=== PATIENT | female | born 1945 | race Caucasian/White ===

== ENCOUNTER 2018-07-16 21:22 | Emergency (ER) | payer MEDICARE, MEDICAID ==
[2018-07-16] MEDS ORDERED: Apixaban 2.5 MG Tab PO ONE (21:58)
[2018-07-16] MEDS ORDERED: Metoprolol Tartrate 50 MG Tab PO ONE ×2 (21:59→22:14)
[2018-07-16] MEDS ORDERED: Diltiazem 25 MG/5 ML SDV IVPUSH ONE (21:59)
--- NOTE | 2018-07-16 22:00 | EDM.PDOC ---
ED HPI GENERAL MEDICAL PROBLEM - General Chief Complaint: Cardiovascular Problem Stated Complaint: MEDICAL VIA NORTH Time Seen by Provider: 07/16/18 22:00 Source of Information: Reports: Patient History Limitations: Reports: No Limitations - History of Present Illness INITIAL COMMENTS - FREE TEXT/NARRATIVE: PT WAS DOING SOME EXTRA ACTIVITY MOVING FURNITURE TONITE AND SHE WENT BACK INTO ATRIAL FIB. SHE HAD AN EPISODE OF ATRIAL FIB JUST BEFORE THE May. sHE WAS ELECTRICALLY CARDIOVERTED. sHE HAS BEEN STABLE SINCE THAT TIME. sHE HAS BEEN ON METOROPROL BUT WAS OUT OF HER MEDS TODAY SO SHE DID NOT TAKE THE 100MG THAT SHE USUIALLY TAKES. sHE DID NOT HAVE CHEST PAIN. sHE WAS NOT REAL SOB. Onset: Today, Sudden, Other (STARTED THIS PM. ) Duration: Hour(s): Location: Reports: Chest Associated Symptoms: Reports: Shortness of Breath, Weakness - Related Data Allergies Allergy/AdvReac Type Severity Reaction Status Date / Time codeine Allergy Sweating Verified 07/16/18 21:26 Penicillins Allergy Swelling Verified 07/16/18 21:26 Home Meds: Home Meds Losartan [Cozaar] 100 mg PO DAILY 12/28/13 [History] Metoprolol Tartrate [Lopressor] 100 mg PO DAILY 12/28/13 [History] atorvaSTATin [Lipitor] 20 mg PO BEDTIME 12/28/13 [History] metFORMIN [Glucophage] 500 mg PO BID 12/28/13 [History] Latanoprost 2.5 ml EYEBOTH BEDTIME 07/09/14 [History] Aspirin 81 mg PO DAILY 09/03/16 [History] Propylene Glycol [Systane Balance] 1 drop EYEBOTH ASDIRECTED 09/03/16 [History] Albuterol [Ventolin HFA] 2 puff INH QID PRN 05/24/18 [History] Umeclidinium Brm/Vilanterol Tr [Anoro Ellipta 62.5-25 Mcg INH] 1 puff INH DAILY 05/24/18 [History] Apixaban [Eliquis] 2.5 mg PO BID 07/16/18 [History] Potassium Chloride [Klor-Con M20] 20 meq PO DAILY 07/16/18 [History] hydroCHLOROthiazide [Hydrochlorothiazide] 25 mg PO DAILY 07/16/18 [History] hydroCHLOROthiazide [Hydrochlorothiazide] 25 mg PO DAILY 07/16/18 [History] Past Medical History HEENT History: Reports: Impaired Vision, Other (See Below) Other HEENT History: scars on retina Cardiovascular History: Reports: Afib, High Cholesterol, Hypertension Respiratory History: Reports: COPD Endocrine/Metabolic History: Reports: Diabetes, Type II Hematologic History: Reports: Anticoagulation Therapy Oncologic (Cancer) History: Reports: Breast - Infectious Disease History Infectious Disease History: Reports: Chicken Pox - Past Surgical History Female Surgical History: Reports: Hysterectomy Oncologic Surgical History: Reports: Mastectomy Social & Family History - Family History Cardiac: Reports: Pacemaker - Tobacco Use Smoking Status *Q: Current Every Day Smoker Years of Tobacco use: 35 Packs/Tins Daily: 0.5 - Caffeine Use Caffeine Use: Reports: Coffee - Recreational Drug Use Recreational Drug Use: No ED ROS GENERAL - Review of Systems Review Of Systems: See Below Constitutional: Reports: No Symptoms HEENT: Reports: No Symptoms Respiratory: Reports: Shortness of Breath Cardiovascular: Reports: Palpitations, Other (PT FELT LIKE SHE WAS BACK IN ATRIAL FIB. ) Endocrine: Reports: No Symptoms GI/Abdominal: Reports: No Symptoms : Reports: No Symptoms Musculoskeletal: Reports: No Symptoms Skin: Reports: No Symptoms Neurological: Reports: No Symptoms Psychiatric: Reports: No Symptoms ED EXAM, GENERAL - Physical Exam Exam: See Below Free Text/Narrative:: PT WAS HELPING TO MOVE FURNITURE TONIGHT AND SHE FELT LIKE HER HEART WENT OUT OF RHYTHM. sHE DID NOT HAVE CHEST PAIN. sHE DID FEEL SOB. sHE DID RUN OUT OF HER METORPROL AND DI NOT TAKE IT TODAY. Exam Limited By: No Limitations General Appearance: Alert, No Apparent Distress, Anxious Ears: Normal TMs Nose: Normal Inspection Throat/Mouth: Normal Inspection Head: Atraumatic Neck: Normal Inspection Respiratory/Chest: No Respiratory Distress Cardiovascular: Irregularly Irregular, Other ( RATE WAS 140 ON ARRIVAL. ) GI/Abdominal: Soft, Non-Tender (Female) Exam: Deferred Rectal (Female) Exam: Deferred Back Exam: Normal Inspection Extremities: Normal Inspection Neurological: Alert, Oriented, Normal Cognition Course - Vital Signs Last Recorded V/S: Last Vital Signs Temp 36.8 C 07/16/18 21:32 Pulse 124 H 07/16/18 22:47 Resp 18 07/16/18 22:47 BP 158/77 H 07/16/18 22:47 Pulse Ox 96 07/16/18 22:47 - Orders/Labs/Meds Orders: Active Orders 24 hr Category Date Time Status EKG Documentation Completion [RC] ASDIRECTED Care 07/16/18 22:03 Active UA W/MICROSCOPIC [URIN] Urgent Lab 07/16/18 22:00 Ordered EKG 12 Lead [EK] Routine Ther 07/16/18 22:03 Ordered Labs: Laboratory Tests 07/16/18 07/16/18 07/16/18 Range/Units 21:57 22:00 22:00 WBC 8.1 (4.5-11.0) K/uL RBC 4.96 (3.30-5.50) M/uL Hgb 15.4 H (12.0-15.0) g/dL Hct 44.9 (36.0-48.0) % MCV 91 (80-98) fL MCH 31 (27-31) pg MCHC 34 (32-36) % Plt Count 210 (150-400) K/uL Neut % (Auto) 66 (36-66) % Lymph % (Auto) 18 L (24-44) % [place] % (Auto) 14 H (2-6) % Eos % (Auto) 1 L (2-4) % Baso % (Auto) 0 (0-1) % Sodium 142 (140-148) mmol/L Potassium 3.8 (3.6-5.2) mmol/L Chloride 103 (100-108) mmol/L Carbon Dioxide 30 (21-32) mmol/L Anion Gap 9.4 (5.0-14.0) mmol/L BUN 37 H (7-18) mg/dL Creatinine 1.2 H (0.6-1.0) mg/dL Est Cr Clr Drug Dosing 31.71 mL/min Estimated GFR (MDRD) 44 L (>60) Glucose 136 H (74-106) mg/dL Calcium 9.6 (8.5-10.1) mg/dL Magnesium 2.0 (1.8-2.4) mg/dL Total Bilirubin 0.5 (0.2-1.0) mg/dL AST 18 (15-37) U/L ALT 27 (12-78) U/L Alkaline Phosphatase 78 (46-116) U/L Troponin I (0.000-0.056) ng/mL Total Protein 7.1 (6.4-8.2) g/dL Albumin 3.9 (3.4-5.0) g/dL Globulin 3.2 (2.3-3.5) g/dL Albumin/Globulin Ratio 1.2 (1.2-2.2) TSH, Ultra Sensitive 0.010 L (0.358-3.740) uIU/mL 07/16/18 Range/Units 22:01 WBC (4.5-11.0) K/uL RBC (3.30-5.50) M/uL Hgb (12.0-15.0) g/dL Hct (36.0-48.0) % MCV (80-98) fL MCH (27-31) pg MCHC (32-36) % Plt Count (150-400) K/uL Neut % (Auto) (36-66) % Lymph % (Auto) (24-44) % [place] % (Auto) (2-6) % Eos % (Auto) (2-4) % Baso % (Auto) (0-1) % Sodium (140-148) mmol/L Potassium (3.6-5.2) mmol/L Chloride (100-108) mmol/L Carbon Dioxide (21-32) mmol/L Anion Gap (5.0-14.0) mmol/L BUN (7-18) mg/dL Creatinine (0.6-1.0) mg/dL Est Cr Clr Drug Dosing mL/min Estimated GFR (MDRD) (>60) Glucose (74-106) mg/dL Calcium (8.5-10.1) mg/dL Magnesium (1.8-2.4) mg/dL Total Bilirubin (0.2-1.0) mg/dL AST (15-37) U/L ALT (12-78) U/L Alkaline Phosphatase (46-116) U/L Troponin I 0.183 H* (0.000-0.056) ng/mL Total Protein (6.4-8.2) g/dL Albumin (3.4-5.0) g/dL Globulin (2.3-3.5) g/dL Albumin/Globulin Ratio (1.2-2.2) TSH, Ultra Sensitive (0.358-3.740) uIU/mL Meds: Medications Discontinued Medications Generic Name Dose Route Start Last Admin Trade Name Ernesto PRN Reason Stop Dose Admin Apixaban 2.5 mg 07/16/18 21:58 07/16/18 22:03 Eliquis PO 07/16/18 21:59 2.5 mg ONETIME ONE Administration Diltiazem HCl 10 mg 07/16/18 21:59 07/16/18 22:03 Diltiazem IVPUSH 07/16/18 22:00 10 mg ONETIME ONE Administration Metoprolol Tartrate 50 mg 07/16/18 21:59 07/16/18 22:03 Lopressor PO 07/16/18 22:00 50 mg ONETIME ONE Administration Metoprolol Tartrate 50 mg 07/16/18 22:14 07/16/18 22:18 Lopressor PO 07/16/18 22:15 50 mg ONETIME ONE Administration - Re-Assessments/Exams Free Text/Narrative Re-Assessment/Exam: 07/16/18 23:06 pT WAS GIVEM METORPROL , --100MG, SHE WAS GIVEN A BOLUS OF 10 MG OF CARDIZEM. . hER RATE HAS SLOWED TO 109-115. sHE WAS FOUND TO HAVE A TROP OF .183. sHE IS MILDLY HYPERTHYROID. . sHE HAS NOT HADANY CHEST PAIN 07/16/18 23:0D . Departure - Departure Time of Disposition: 23:09 Disposition: DC/Tfer to Acute Hospital 02 Reason for Transfer *Q: Primary PCI Indicated Condition: Fair Clinical Impression: Atrial fibrillation, Elevated troponin Referrals: PCP,None [Primary Care Provider] - Forms: ED Department Discharge Care Plan Goals: TRANSFER TO [facility]. - My Orders Last 24 Hours: My Active Orders 07/16/18 22:00 UA W/MICROSCOPIC [URIN] Urgent 07/16/18 22:03 EKG Documentation Completion [RC] ASDIRECTED EKG 12 Lead [EK] Routine - Assessment/Plan Last 24 Hours: My Active Orders 07/16/18 22:00 UA W/MICROSCOPIC [URIN] Urgent 07/16/18 22:03 EKG Documentation Completion [RC] ASDIRECTED EKG 12 Lead [EK] Routine
[2018-07-16 22:47] VITALS: BP 158/77
[2018-07-16] MEDS ORDERED: Aspirin 81 MG Tab.Chew PO ONE (22:57)
--- NOTE | 2018-07-17 08:57 | CR ---
CHEST: Portable CLINICAL HISTORY:SOB COMPARISON:2016 FINDINGS: The lungs are emphysematous. Patient has had previous left mastectomy.. Heart and pulmonary vascularity appear normal. There are atherosclerotic changes in the aorta.. Lung petersen are clear IMPRESSION: COPD No acute cardiopulmonary process
== END 2018-07-16 23:45 ==
LOC: JP.ED 21:22
DX: I48.91 Unspecified atrial fibrillation (principal); R79.89 Other specified abnormal findings of blood chemistry; F17.210 Nicotine dependence, cigarettes, uncomplicated; E11.9 Type 2 diabetes mellitus without complications; I10 Essential (primary) hypertension; E78.00 Pure hypercholesterolemia, unspecified; Z79.84 Long term (current) use of oral hypoglycemic drugs; Z79.899 Other long term (current) drug therapy; Z79.82 Long term (current) use of aspirin; Z88.5 Allergy status to narcotic agent; Z88.0 Allergy status to penicillin
CPT/HCPCS: 36415; 71045; 80053; 83735; 84443; 84484; 85025; 93005; 96374; 99285; A9270; J3490

== ENCOUNTER 2020-06-18 00:24 | Emergency (ER) | payer MEDICAID, MEDICARE ==
[2020-06-18] MEDS ORDERED: Diltiazem 25 MG/5 ML SDV IVPUSH ONE (00:51)
[2020-06-18] MEDS ORDERED: Sodium Chloride 0.9% 10 ML Syringe FLUSH PRN (00:52)
--- NOTE | 2020-06-18 00:56 | EDM.PDOC ---
ED HPI GENERAL MEDICAL PROBLEM - General Chief Complaint: Cardiovascular Problem Stated Complaint: MEDICAL VIA NORTH Time Seen by Provider: 06/18/20 00:48 Source of Information: Reports: Patient, RN Notes Reviewed History Limitations: Reports: No Limitations - History of Present Illness INITIAL COMMENTS - FREE TEXT/NARRATIVE: 74-year-old female presents emergency department today via EMS chief complaint of diaphoresis, she states that come on earlier this evening she denies any shortness of breath or chest pain no palpitations no nausea vomiting denies pain Pain Score (Numeric/FACES): 0 - Related Data Allergies Allergy/AdvReac Type Severity Reaction Status Date / Time codeine Allergy Sweating Verified 06/18/20 00:36 Penicillins Allergy Swelling Verified 06/18/20 00:36 Home Meds: Home Meds Losartan [Cozaar] 100 mg PO DAILY 12/28/13 [History] atorvaSTATin [Lipitor] 20 mg PO BEDTIME 12/28/13 [History] metFORMIN [Glucophage] 500 mg PO BID 12/28/13 [History] Latanoprost 2.5 ml EYEBOTH BEDTIME 07/09/14 [History] Aspirin 81 mg PO DAILY 09/03/16 [History] Propylene Glycol [Systane Balance] 1 drop EYEBOTH ASDIRECTED 09/03/16 [History] Albuterol [Ventolin HFA] 2 puff INH QID PRN 05/24/18 [History] Umeclidinium Brm/Vilanterol Tr [Anoro Ellipta 62.5-25 Mcg INH] 1 puff INH DAILY 05/24/18 [History] Apixaban [Eliquis] 2.5 mg PO BID 07/16/18 [History] hydroCHLOROthiazide [Hydrochlorothiazide] 25 mg PO DAILY 07/16/18 [History] Metoprolol Succinate 50 mg PO BEDTIME 06/18/20 [History] Metoprolol Succinate 100 mg PO QAM 06/18/20 [History] hydrALAZINE HCl [Hydralazine HCl] 25 mg PO BID 06/18/20 [History] Past Medical History HEENT History: Reports: Impaired Vision, Other (See Below) Other HEENT History: scars on retina Cardiovascular History: Reports: Afib, High Cholesterol, Hypertension Respiratory History: Reports: COPD Endocrine/Metabolic History: Reports: Diabetes, Type II Hematologic History: Reports: Anticoagulation Therapy Oncologic (Cancer) History: Reports: Breast - Infectious Disease History Infectious Disease History: Reports: Chicken Pox - Past Surgical History Female Surgical History: Reports: Hysterectomy Oncologic Surgical History: Reports: Mastectomy Social & Family History - Family History Cardiac: Reports: Pacemaker - Caffeine Use Caffeine Use: Reports: Coffee ED ROS GENERAL - Review of Systems Review Of Systems: See Below Constitutional: Reports: Diaphoresis HEENT: Reports: No Symptoms Respiratory: Reports: No Symptoms Cardiovascular: Reports: No Symptoms GI/Abdominal: Reports: No Symptoms ED EXAM, GENERAL - Physical Exam Exam: See Below Exam Limited By: No Limitations General Appearance: Alert, WD/WN, No Apparent Distress Respiratory/Chest: No Respiratory Distress, Lungs Clear, Normal Breath Sounds, No Accessory Muscle Use, Chest Non-Tender Cardiovascular: No Murmur, Tachycardia GI/Abdominal: Soft, Non-Tender Extremities: No Pedal Edema Course - Vital Signs Last Recorded V/S: Last Vital Signs Temp 96.2 F L 06/18/20 00:42 Pulse 123 H 06/18/20 01:00 Resp 24 H 06/18/20 01:00 BP 107/60 06/18/20 01:00 Pulse Ox 92 L 06/18/20 01:00 - Orders/Labs/Meds Orders: Active Orders 24 hr Category Date Time Status Cardiac Monitoring [RC] .As Directed Care 06/18/20 00:52 Active EKG Documentation Completion [RC] ASDIRECTED Care 06/18/20 00:53 Active Peripheral IV Care [RC] . DIRECTED Care 06/18/20 00:52 Active Sodium Chloride 0.9% [Normal Saline] 1,000 ml Med 06/18/20 01:00 Active IV ASDIRECTED Sodium Chloride 0.9% [Saline Flush] Med 06/18/20 00:52 Active 10 ml FLUSH ASDIRECTED PRN Peripheral IV Insertion Adult [OM.PC] Stat Oth 06/18/20 00:52 Ordered EKG 12 Lead [EK] Stat Ther 06/18/20 00:53 Ordered Medication Orders Sodium Chloride (Normal Saline) 1,000 mls @ 500 mls/hr IV ASDIRECTED ALIYAH Last Admin: 06/18/20 01:08 Dose: 500 mls/hr Documented by: AYDEN Sodium Chloride (Saline Flush) 10 ml FLUSH ASDIRECTED PRN PRN Reason: Keep Vein Open Last Admin: 06/18/20 01:07 Dose: 10 ml Documented by: AYDEN Labs: Laboratory Tests 06/18/20 06/18/20 06/18/20 Range/Units 00:36 00:36 00:36 WBC 10.2 (4.5-11.0) K/uL RBC 5.45 (3.30-5.50) M/uL Hgb 17.0 H (12.0-15.0) g/dL Hct 50.0 H (36.0-48.0) % MCV 92 (80-98) fL MCH 31 (27-31) pg MCHC 34 (32-36) % Plt Count 284 (150-400) K/uL Neut % (Auto) 63 (36-66) % Lymph % (Auto) 23 L (24-44) % [place] % (Auto) 11 H (2-6) % Eos % (Auto) 2 (2-4) % Baso % (Auto) 1 (0-1) % Sodium 136 L (140-148) mmol/L Potassium 3.5 L (3.6-5.2) mmol/L Chloride 94 L (100-108) mmol/L Carbon Dioxide 27 (21-32) mmol/L Anion Gap 18.5 H (5.0-14.0) mmol/L BUN 34 H (7-18) mg/dL Creatinine 1.1 H (0.6-1.0) mg/dL Est Cr Clr Drug Dosing 35.88 mL/min Estimated GFR (MDRD) 49 L (>60) Glucose 181 H (74-106) mg/dL Lactic Acid 2.7 H (0.4-2.0) mmol/L Calcium 9.5 (8.5-10.1) mg/dL Total Bilirubin 0.8 D (0.2-1.0) mg/dL AST 19 (15-37) U/L ALT 22 (12-78) U/L Alkaline Phosphatase 58 (46-116) U/L Troponin I < 0.017 (0.000-0.056) ng/mL Total Protein 7.6 (6.4-8.2) g/dL Albumin 4.5 (3.4-5.0) g/dL Globulin 3.1 (2.3-3.5) g/dL Albumin/Globulin Ratio 1.5 (1.2-2.2) Meds: Medications Generic Name Dose Route Start Last Admin Trade Name Freq PRN Reason Stop Dose Admin Sodium Chloride 1,000 mls @ 500 mls/hr 06/18/20 01:00 06/18/20 01:08 Normal Saline IV 500 mls/hr ASDIRECTED ALIYAH Administration Sodium Chloride 10 ml 06/18/20 00:52 06/18/20 01:07 Saline Flush FLUSH 10 ml ASDIRECTED PRN Administration Keep Vein Open Discontinued Medications Generic Name Dose Route Start Last Admin Trade Name Freq PRN Reason Stop Dose Admin Diltiazem HCl 20 mg 06/18/20 00:51 06/18/20 01:07 Diltiazem IVPUSH 06/18/20 00:52 20 mg ONETIME ONE Administration Departure - Departure Time of Disposition: 02:09 Disposition: Home, Self-Care 01 Condition: Fair Clinical Impression: Atrial fibrillation with rapid ventricular response Instructions: Atrial Fibrillation, [id number] Referrals: PCP,None [Primary Care Provider] - Forms: ED Department Discharge Additional Instructions: Try increasing your metoprolol from 50 mg at night to 100 mg as needed, please followup with your primary care provider in 3-5 days if not better, please call return to the emergency department with worsening of symptoms. Sepsis Event Note (ED) - Evaluation Sepsis Screening Result: No Definite Risk - Focused Exam Vital Signs: Vital Signs Temp Pulse Resp BP Pulse Ox 06/18/20 01:00 123 H 24 H 107/60 92 L 06/18/20 00:42 96.2 F L 117 H 17 132/73 95 06/18/20 00:40 96.2 F L 117 H 17 132/73 95 - My Orders Last 24 Hours: My Active Orders 06/18/20 00:52 Cardiac Monitoring [RC] .As Directed Peripheral IV Care [RC] . DIRECTED Sodium Chloride 0.9% [Saline Flush] 10 ml FLUSH ASDIRECTED PRN Peripheral IV Insertion Adult [OM.PC] Stat 06/18/20 00:53 EKG Documentation Completion [RC] ASDIRECTED EKG 12 Lead [EK] Stat 06/18/20 01:00 Sodium Chloride 0.9% [Normal Saline] 1,000 ml IV ASDIRECTED - Assessment/Plan Last 24 Hours: My Active Orders 06/18/20 00:52 Cardiac Monitoring [RC] .As Directed Peripheral IV Care [RC] . DIRECTED Sodium Chloride 0.9% [Saline Flush] 10 ml FLUSH ASDIRECTED PRN Peripheral IV Insertion Adult [OM.PC] Stat 06/18/20 00:53 EKG Documentation Completion [RC] ASDIRECTED EKG 12 Lead [EK] Stat 06/18/20 01:00 Sodium Chloride 0.9% [Normal Saline] 1,000 ml IV ASDIRECTED Plan: Assessment Acuity = acute Site and laterality = atrial fibrillation with rapid ventricular response Etiology = unknown Manifestations = diaphoresis now resolved Location of injury = Home Lab values = hemoglobin elevated 17.0, creatinine elevated 1.1 consistent chronic renal failure stage G3 a lactic acid elevated 2.7 troponin is negative EKG demonstrates atrial fibrillation tachycardic Plan Good response to 10 mg Cardizem IV I did discuss options with her she suspicious she may bounce in and out of atrial fibrillation back to sinus rhythm as well as bouts of tachycardia I further plan is to increase her metoprolol to 100 mg at night as needed follow-up primary care 3 to 5 days if not better continue with Ricky This note was dictated using [employer] recognition software please call with any questions on syntax or grammar.
[2020-06-18] MEDS ORDERED: Sodium Chloride 0.9% 1,000 ML IV SCH (01:00)
[2020-06-18 02:09] VITALS: BP 106/32; PULSE 99
== END 2020-06-18 02:43 | disposition home or self-care (01) ==
LOC: JP.ED 00:24
DX: I48.91 Unspecified atrial fibrillation (principal); R00.0 Tachycardia, unspecified; I10 Essential (primary) hypertension; E78.00 Pure hypercholesterolemia, unspecified; J44.9 Chronic obstructive pulmonary disease, unspecified; E11.9 Type 2 diabetes mellitus without complications; Z79.01 Long term (current) use of anticoagulants; Z79.899 Other long term (current) drug therapy; Z88.5 Allergy status to narcotic agent; Z88.0 Allergy status to penicillin; Z79.82 Long term (current) use of aspirin; Z79.84 Long term (current) use of oral hypoglycemic drugs
CPT/HCPCS: 36415; 80053; 83605; 84484; 85025; 93005; 96360; 96361; 96372; 99284; J3490; J7030; 93010

== ENCOUNTER 2023-03-06 09:59 | Inpatient (IN) | payer MEDICARE, MEDICAID ==
[2023-03-06] MEDS ORDERED: Sodium Chloride 0.9% 10 ML Syringe FLUSH PRN ×2 (10:04→15:43)
[2023-03-06] MEDS ORDERED: Sodium Chloride 0.9% 500 ML IV ONE ×2 (11:04→11:19)
[2023-03-06] MEDS ORDERED: Vancomycin 1 GM SDV ONE (11:21)
[2023-03-06 11:58] LABS: CORONAVIRUS COVID-19 NAA NEGATIVE (NEGATIVE)
[2023-03-06] MEDS ORDERED: Sodium Chloride 0.9% 1,000 ML IV SCH (13:15)
[2023-03-06] MEDS ORDERED: Acetaminophen 500 MG Tab PO ONE (13:55)
[2023-03-06] MEDS ORDERED: Nicotine Polacrilex 2 MG Gum CHEW PRN (15:13)
[2023-03-06] MEDS ORDERED: Ondansetron 4 MG/2 ML SDV IV PRN (15:43)
[2023-03-06] MEDS ORDERED: 50% Dextrose in Water 50 ML Syringe IV PRN (15:43)
[2023-03-06] MEDS ORDERED: Albuterol 90 MCG/6.7 GM Inhaler INH PRN (15:43)
[2023-03-06] MEDS ORDERED: Glucose Gel 15 GM in 37.5 GM Tube PO PRN (15:43)
[2023-03-06] MEDS: Nicotine 14 MG/24 Hr Patch TRDERM SCH (16:51)
[2023-03-06] MEDS: Insulin Lispro 100 Unit/ML 3 ML KwikPen SUBCUT SCH ×2 (16:56→21:14)
[2023-03-06] MEDS: Acetaminophen 325 MG Tab PO PRN ×2 (17:45→23:14)
[2023-03-06] MEDS: Apixaban 2.5 MG Tab PO SCH (20:00)
[2023-03-06] MEDS: atorvaSTATin 20 MG Tab PO SCH (20:00)
[2023-03-06] MEDS: Latanoprost 0.005% Ophth Soln 2.5 ML Bottle EYEBOTH SCH (20:02)
[2023-03-06] MEDS: Sodium Chloride 0.9% 1,000 ML IV SCH (20:10)
[2023-03-06] MEDS ORDERED: atorvaSTATin 10 MG Tab PO SCH (21:00)
[2023-03-06] MEDS: Metoprolol Succinate 50 MG Tab.ER PO SCH (21:14)
[2023-03-07] MEDS: Sodium Chloride 0.9% 1,000 ML IV SCH ×3 (04:11→20:42)
[2023-03-07] MEDS: Acetaminophen 325 MG Tab PO PRN ×3 (08:42→22:03)
[2023-03-07] MEDS: Apixaban 2.5 MG Tab PO SCH ×2 (08:43→20:36)
[2023-03-07] MEDS: Aspirin 81 MG Tab.Chew PO SCH (08:43)
[2023-03-07] MEDS: Nicotine 14 MG/24 Hr Patch TRDERM SCH (08:46)
[2023-03-07] MEDS ORDERED: Metoprolol Succinate 50 MG Tab.ER PO SCH (09:00)
[2023-03-07] MEDS ORDERED: Losartan 50 MG Tab PO SCH (09:00)
[2023-03-07] MEDS ORDERED: Non-Formulary Medication 1 Each (Umeclidinium Brm/Vilanterol Tr [Anoro Ellipta 62.5-25 Mcg INH SCH (09:00)
[2023-03-07] MEDS: Insulin Lispro 100 Unit/ML 3 ML KwikPen SUBCUT SCH ×4 (10:29→22:06)
[2023-03-07] MEDS ORDERED: Sodium Chloride 0.9% 500 ML IV ONE (11:36)
[2023-03-07] MEDS: Tiotropium BR/Olodaterol HCL 4 GM Inhalation Spray 2.5mcg/1 dose; 10 doses INH SCH (19:35)
[2023-03-07] MEDS: atorvaSTATin 20 MG Tab PO SCH (20:36)
[2023-03-07] MEDS: Latanoprost 0.005% Ophth Soln 2.5 ML Bottle EYEBOTH SCH (20:37)
[2023-03-07] MEDS: Metoprolol Succinate 50 MG Tab.ER PO SCH (20:38)
[2023-03-08] MEDS: Acetaminophen 325 MG Tab PO PRN ×2 (01:56→23:47)
[2023-03-08] MEDS: Insulin Lispro 100 Unit/ML 3 ML KwikPen SUBCUT SCH ×5 (08:10→21:15)
[2023-03-08] MEDS: Apixaban 2.5 MG Tab PO SCH ×2 (08:27→21:19)
[2023-03-08] MEDS: Aspirin 81 MG Tab.Chew PO SCH (08:27)
[2023-03-08] MEDS: Nicotine 14 MG/24 Hr Patch TRDERM SCH (08:29)
[2023-03-08] MEDS ORDERED: Potassium Chloride 20 MEQ Tab.ER PO ONE ×2 (08:30→17:00)
[2023-03-08] MEDS: Tiotropium BR/Olodaterol HCL 4 GM Inhalation Spray 2.5mcg/1 dose; 10 doses INH SCH (10:26)
[2023-03-08] MEDS: Latanoprost 0.005% Ophth Soln 2.5 ML Bottle EYEBOTH SCH (21:19)
[2023-03-08] MEDS: atorvaSTATin 20 MG Tab PO SCH (21:19)
[2023-03-09] MEDS: Tiotropium BR/Olodaterol HCL 4 GM Inhalation Spray 2.5mcg/1 dose; 10 doses INH SCH (07:41)
[2023-03-09] MEDS ORDERED: Magnesium Sulfate/Water 2 GM in Premix Bag 1 BAG IV SCH (08:30)
[2023-03-09] MEDS ORDERED: Magnesium Oxide 400 MG Tab PO SCH (09:00)
[2023-03-09] MEDS: Insulin Lispro 100 Unit/ML 3 ML KwikPen SUBCUT SCH (09:32)
[2023-03-09] MEDS: Nicotine 14 MG/24 Hr Patch TRDERM SCH (10:07)
[2023-03-09] MEDS: Aspirin 81 MG Tab.Chew PO SCH (10:08)
[2023-03-09] MEDS: Apixaban 2.5 MG Tab PO SCH (10:08)
[2023-03-09 10:15] VITALS: BP 110/54; PULSE 81
== END 2023-03-09 11:10 | DRG 683 ==
LOC: JP.ED 09:59 → JP.MS 14:32
PROVIDERS: ADMIT Hospitalist; ATTEND Hospitalist
DX: N17.9 Acute kidney failure, unspecified (principal); I48.11 Longstanding persistent atrial fibrillation; R64 Cachexia; Z68.1 Body mass index [BMI] 19.9 or less, adult; M62.82 Rhabdomyolysis; L97.811 Non-pressure chronic ulcer of other part of right lower leg limited to breakdown of skin; L97.821 Non-pressure chronic ulcer of other part of left lower leg limited to breakdown of skin; Z66 Do not resuscitate; J44.9 Chronic obstructive pulmonary disease, unspecified; I65.23 Occlusion and stenosis of bilateral carotid arteries; I25.10 Atherosclerotic heart disease of native coronary artery without angina pectoris; E86.0 Dehydration; F17.210 Nicotine dependence, cigarettes, uncomplicated; Z20.822 Contact with and (suspected) exposure to COVID-19; H54.40 Blindness, one eye, unspecified eye; R32 Unspecified urinary incontinence; I10 Essential (primary) hypertension; I87.2 Venous insufficiency (chronic) (peripheral); E11.42 Type 2 diabetes mellitus with diabetic polyneuropathy; H40.9 Unspecified glaucoma; M85.80 Other specified disorders of bone density and structure, unspecified site; E11.51 Type 2 diabetes mellitus with diabetic peripheral angiopathy without gangrene; Z79.84 Long term (current) use of oral hypoglycemic drugs; Z79.899 Other long term (current) drug therapy; Z79.82 Long term (current) use of aspirin; Z88.5 Allergy status to narcotic agent; Z88.0 Allergy status to penicillin; Z85.3 Personal history of malignant neoplasm of breast; Z88.8 Allergy status to other drugs, medicaments and biological substances; Z79.01 Long term (current) use of anticoagulants; Z98.49 Cataract extraction status, unspecified eye; Z90.89 Acquired absence of other organs; Z98.890 Other specified postprocedural states; Z90.710 Acquired absence of both cervix and uterus; Z90.12 Acquired absence of left breast and nipple
CPT/HCPCS: 0241U; 36415; 71045; 71045-26; 80048; 81001; 82040; 82550; 82803; 82947; 83605; 83735; 85025; 85027; 86140; 87040; 93010; 93925; 93925-26; 94640; 94667; 96361; 96365; 97110-GP; 97163-GP; 97530-GP; 99222; 99232; 99238; 99285; 99285-25; A9270-GY; J1815; J3370; J3475; J7030; J7040; J7050